=== PATIENT | male | born 1955 | race Caucasian/White ===

== ENCOUNTER → 2019-10-26 | Outpatient (CLI) | payer BC, OTHER ==
[~2019-10-26] MED LIST: ASPIR 8181 MG PO; ATORVASTATIN CA40 MG PO; CYMBALTA20 MG PO; CYMBALTA60 MG PO; ENBREL50 MG/1 ML SQ; FISH OIL 1,001000 M2 PO; FLEXERIL PO; FOLIC ACID1 MG PO; GLUCOSAMINE HC500 MG PO; LISINOPRIL5 MG PO; METHOTREXATE 22.5 MG PO; NIACIN 100MG T100 M1 PO; NORCO 5-325 TA1 EAC1 PO; PLAVIX 75 MG TA75 M1 PO; RESVERATROL250 MG PO; VITAMINC500 PO
== END ==
LOC: SJCVCIMAG 08:57
DX: I25.10 Atherosclerotic heart disease of native coronary artery without angina pectoris (principal); I25.2 Old myocardial infarction; Z79.899 Other long term (current) drug therapy

== ENCOUNTER 2019-10-30 06:40 | Observation (INO) | payer BC, OTHER ==
[2019-10-30] VITALS (10 sets, daily range): BP systolic 124–156; BP diastolic 60–88
[~2019-10-30] VITALS: Ht 177.8 cm; Wt 99.8 kg
[2019-10-30 07:38] LABS: HEMATOCRIT 41.2 % (42.0-52.0); MCH 33.4 pg (26.0-34.0); MCV 98.3 fL (80.0-100.0); RBC 4.19 mil/uL (4.50-6.00); RDW 12.2 % (10.5-14.5); WBC 6.3 thou/uL (4.0-11.0)
[2019-10-30 07:46] LABS: POTASSIUM 3.9 mmol/L (3.5-5.1)
[2019-10-30] MEDS ORDERED: PROZAC40 MG PO (07:55)
[2019-10-30] MEDS ORDERED: AZULFIDINE500 MG PO (07:56)
--- NOTE | 2019-10-30 08:52 | EKG ---
[facility] [place] [address] ELECTROCARDIOGRAM REPORT Name: CAMILLA KUMAR Room #: [facility]#: [id number] Admission: 10/30/19 Attend Phys: Felton Dow MD Discharge: Date of : 57 Report #: [id number] THIS REPORT FOR: cc: Rene Sellers Ghaison F. DO Lundgren, Craig H. 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
--- NOTE | 2019-10-30 11:51 | CATHLAB ---
[facility] [place] [address] INVASIVE PROCEDURE REPORT Name: CAMILLA KUMAR Room #: 209-P [facility] M.RJamie#: [id number] Admission: 10/30/19 Attend Phys: Felton Dow MD Discharge: Date of : 57 Report #: [id number] THIS REPORT FOR: cc: Rene Sellers Ghaison F. DO Park, Jin S. MD ~ APPROVED REPORT Study performed: 10/30/2019 08:28:24 Patient Details Patient Status: Out-Patient Room #: The patient is a 64 year-old male Event Personnel Felton Dow Funeral Pre Arrangement Counselor, Pari Demarco RN RN, Khloe Chapin Monitor, [employer] [place] RTR Scrub Procedures Performed Art Access - R femoral artery* 83162 Initial Mod Sed Same Phys/QHP Gr5y 098289 51937 Mod Sed Same Phys/QHP Ea 026156 Left Heart Cath w/or w/o Coronaries 6357653 [facility] w/wo Plasty Single LAD 749407 Hemostasis w/ Mynx Indication Dyspnea, Positive stress test Risk Factors Hypercholesterolemia, Coronary Artery DiseaseHypertension Previous Procedures/Diagnoses Previous PCI, Previous IL Procedure Narrative The patient was brought electively to the Cardiac Catheterization Laboratory and was prepped and draped in a sterile manner. The Right Groin^ was infiltrated with 1% Lidocaine subcutaneous anesthesia. A PINNACLE 4FR Sheath #[id number] sheath was inserted into the RFA^. Coronary angiography was performed using coronary diagnostic catheters. The right coronary system was accessed and visualized with a JR 4 catheter. The left coronary system was accessed and visualized with a JL 4 catheter. The left ventricle was accessed and visualized with a JR 4 catheter. Left ventricular/Aortic Valve gradient assessed via catheter pullback. Pre-demployment femoral angiogram was [facility] [place] [address] INVASIVE PROCEDURE REPORT Name: KUMARCAMILLA KEARNEY Room #: 209-P [facility] IN ..#: [id number] Admission: 10/30/19 Attend Phys: Felton Dow MD Discharge: Date of : 57 Report #: [id number] performed . Closure device was deployed with a 6 Fr Mynx. The patient tolerated the procedure well and there were no complications associated with the procedure. There was no hematoma. Intraoperative Conscious Sedation Sedation start time: 08:21 Case end Time: 09:15 Fentanyl 50 mcg Versed 1 mg Fluoro Time: 14.10 minutes Dose: DAP 00198.00 cGycm2 3418 mGy Contrast Type and Amount: Omnipaque 200 ml Coronary Angiography The patient's coronary anatomy is right dominant. Diagnostic Cath Left Main The left main artery is a large-caliber vessel, patent with no flow-limiting lesions. LAD The LAD is a moderate size caliber vessel, traversing the anterior wall and wrapping around the apex. There are 2 overlapping stents in the proximal/mid segment of the LAD. There is a severe restenotic lesion in the proximal stent, 80%. Diagonal 1 This is a small-caliber vessel, patent with no flow-limiting lesions. Diagonal 2 This is a small-caliber vessel, patent with no flow-limiting lesions. Circumflex Supplies 2 OM vessels. OM1 This is a moderate size caliber vessel, supplies multiple branches as it travels down the lateral wall. There is mild disease in the proximal segment. OM2 This is a small-caliber vessel, patent with no flow-limiting lesions. Right Coronary This is a dominant vessel, patent with no flow-limiting lesions. R PDA This is a small to moderate size caliber vessel, patent with no flow-limiting lesions. RPLV This is a small to moderate size caliber vessel, patent with no flow-limiting lesions. Left Ventriculography Left Ventriculography was not performed. Ejection Fraction was 50-55% based off patient's Nuclear Cardiac Stress Test. An LVEDP was checked and there is no gradient across the outflow tract. [facility] [address] [place] [address] INVASIVE PROCEDURE REPORT Name: CAMILLA KUMAR Room #: 209-P [facility] [place] M.R.#: [id number] Admission: 10/30/19 Attend Phys: Felton Dow MD Discharge: Date of : 57 Report #: [id number] Hemodynamics The aortic pressure is 129/69 mmHg with a mean of 85 mmHg. The left ventricular pressure is 132/17 mmHg with a mean of mmHg. The left ventricular end diastolic pressure is 25 mmHg. PCI Technique Lesion Percutaneous coronary intervention was performed on the proximal left anterior descending artery segment. The lesion stenosis prior to intervention was 80% with AMRITA 3 flow. A VISTA 6FR XB 3.5 #[id number] Guide Catheter was used to engage the ostium. A Luge Wire .014 x 182CM #[id number] Interventional Guidewire was used to cross the lesion. BALLOON DILATION A Balloon catheter Euphora NC RX 2.5 x 12 #[id number] was inserted and inflated up to 18atm for 15seconds. STENT DEPLOYMENT A drug-eluting stent RESOLUTE TYRESE RX 3.0 X 15 #[id number] was inserted and inflated up to 16.00atm for 30seconds. POST STENT DEPLOYMENT BALLOON DILATION A Balloon catheter Euphora NC RX 3.25 x 15 #[id number] was inserted and inflated up to 18.00atm for 19seconds. Final angiography reveals 5 % stenosis with AMRITA 3 flow. POST STENT DEPLOYMENT BALLOON DILATION A Balloon catheter Euphora NC RX 3.25 x 15 #[id number] was inserted and inflated up to 18.00atm for 22seconds. Conclusion 1. Successful insertion of a drug-eluting stent into the proximal LAD restenosis. There is a patent mid LAD stent. 2. Mild disease in a moderate size OM1 vessel. 3. Normal LV systolic function. 4. Recommend dual antiplatelet therapy and aggressive risk factor management. <ELECTRONICALLY SIGNED> By: Felton Dow MD 10/30/19 1150 49 49 Felton Dow MD /INF
--- NOTE | 2019-10-30 13:22 | NUR ---
PT ARRIVED TO CCU 209 AT 1030, ASSESSED, VSS, R GROIN CHECKED WITH DIRECTOR OF MUSIC THERAPY RN, CDI, NO HEMATOMA ON PALPATION, PT STATED HE'S NOT HAVING PAIN NOW. ON BEDREST, PT UNDERSTANDS POC, CALL LIGHT IN LAP, HEAD OF BED AT 30, PT AMBULATED ROOM WITH STEADY GAIT, GROIN REASSESSED, STILL CDI, NO HEMATOMA, IVF RUNNING AT 100CC/HR TILL 1500. REPORT GIVEN TO RM YOUSSEF.
--- NOTE | 2019-10-30 13:43 | EKG ---
[facility] [place] [address] ELECTROCARDIOGRAM REPORT Name: CAMILLA KUMAR Room #: 209-P [facility] M.R.#: [id number] Admission: 10/30/19 Attend Phys: Felton Dow MD Discharge: Date of : 57 Report #: [id number] THIS REPORT FOR: cc: Rene Sellers Ghaison F. DO Couchonnal, Luis F. 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 : 1955 Requested By: Felton Dow Order Number: [id number] MD: Reymundo Saucedo Measurements Intervals Brady Rate: 53 P: 46 PA: 150 QRS: -49 QRSD: 92 T: 57 QT: 461 QTc: 433 Interpretive Statements Sinus rhythm Left anterior fascicular block Low voltage, extremity and precordial leads Anteroseptal infarct, old Compared to ECG 10/30/2019 07:34:44 Left anterior fascicular block now present Low QRS voltage now present Myocardial infarct finding now present Poor R-wave progression no longer present Electronically Signed On 10-30-2019 13:41:53 CDT by Reymundo Saucedo [email or web address] <ELECTRONICALLY SIGNED> By: Reymundo Saucedo MD 10/30/19 1341 1119 1119 Reymundo Saucedo MD /EPI
--- NOTE | 2019-10-30 18:11 | NUR ---
ASSUMED CARE OF PT AT APPROX 1300 FROM RM DANIEL. ASSESSMENTS CHARTED. PT A&OX4. NO C/O PAIN, SOA, DIZZYNESS. PT HR IN 40-50S BUT REMAINS ASYMPTOMATIC. PLAN TO DISCHARGE IN THE MORNING IF PT IS STABLE. WILL CONTINUE TO MONITOR AND FOLLOW POC.
[2019-10-31 04:00] VITALS: BP 133/72
[2019-10-31 05:23] LABS: HEMATOCRIT 39.1 % (42.0-52.0); HEMOGLOBIN 13.2 gm/dL (14.0-18.0); MCH 33.5 pg (26.0-34.0); MCHC 33.7 g/dL (28.0-37.0); MCV 99.3 fL (80.0-100.0); RBC 3.94 mil/uL (4.50-6.00); RDW 12.1 % (10.5-14.5); WBC 8.3 thou/uL (4.0-11.0)
[2019-10-31 05:47] LABS: ALBUMIN 3.6 g/dL (3.4-5.0); CALCIUM 8.2 mg/dL (8.5-10.1); CREATININE 0.9 mg/dL (0.7-1.3); POTASSIUM 3.9 mmol/L (3.5-5.1); TOTAL BILIRUBIN 0.4 mg/dL (<0.1-1.0); TOTAL PROTEIN 6.2 g/dL (6.4-8.2)
--- NOTE | 2019-10-31 06:41 | NUR ---
ASSUMED CARE OF PATIENT AT 1900. VSS, AFEBRILE. GROIN SITE, C/D/I. NO PAIN. ANTICIPATING D/C TODAY.
[2019-10-31 08:10] VITALS: BP 127/79
[2019-10-31 11:15] VITALS: BP 127/79
--- NOTE | 2019-10-31 12:14 | EKG ---
[facility] [place] [address] ELECTROCARDIOGRAM REPORT Name: CAMILLA KUMAR Room #: 209-[facility] M.R.#: [id number] Admission: 10/30/19 Attend Phys: Felton Dow MD Discharge: 10/31/19 Date of : 57 Report #: [id number] THIS REPORT FOR: cc: Rene Sellers Ghaison F. DO Couchonnal, Luis F. 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 : 1955 Requested By: Felton Dow Order Number: [id number] : Reymundo Saucedo Measurements Intervals [place] Rate: 60 P: 66 NC: 152 QRS: -42 QRSD: 93 T: 67 QT: 450 QTc: 450 Interpretive Statements Sinus rhythm Left axis deviation Anterior infarct, old Compared to ECG 10/30/2019 11:19:07 Left-axis deviation now present Left anterior fascicular block no longer present Myocardial infarct finding still present Electronically Signed On 10-31-2019 12:13:23 CDT by Reymundo Saucedo [email or web address] <ELECTRONICALLY SIGNED> By: Reymundo Saucedo MD 10/31/19 1213 0 0 Reymundo Saucedo MD /EPI
--- NOTE | 2019-10-31 12:27 | NUR ---
ASSUMMED PT CARE AT [facility] 0700. PT A&O X4. ASSESSMENT CHARTED. FALL PRECAUTIONS IN PLACE. PT DENIES HAVING CHEST PAIN. PT DENIES HAVING SOB. PT DENIES HAVING ACUTE PAIN. PT DISCHARGING HOME C SELF CARE. R NATHANIEL C/D/I. NO HEMATOMA. VITAL SIGNS STABLE. PT RECIEVED DISCHARGE EDUCATION. PT STATED UNDERSTANDING C DISCHARGE EDUCATION AND DENIED HAVING FURTHER QUETIONS. PT AMBULATES STEADY. IV DC. TELE DC. PT RECEIVED HOSPITAL TRANSPORT OFF UNIT. PT'S PICKED UP PT. PT COMFORTABLE. PT DENIED HAVING FURTHER CONCERNS.
== END 2019-10-31 12:04 | disposition home or self-care (01) ==
LOC: CATH 06:40 → 2N 11:12 → CATH 13:41 → 2N 10-31 12:04
PROVIDERS: ADMIT Internal Medicine Cardiovascular Disease
DX: I25.110 Atherosclerotic heart disease of native coronary artery with unstable angina pectoris (principal); I10 Essential (primary) hypertension

== ENCOUNTER → 2020-11-14 | Outpatient (CLI) | payer BC, OTHER ==
[~2020-11-14] MED LIST changes: +AZULFIDINE500 MG PO; +PROZAC40 MG PO
== END ==
LOC: SJCVCIMAG 07:33
PROVIDERS: ATTEND Internal Medicine Cardiovascular Disease
DX: Z01.810 Encounter for preprocedural cardiovascular examination (principal); R94.31 Abnormal electrocardiogram [ECG] [EKG]; I25.10 Atherosclerotic heart disease of native coronary artery without angina pectoris; R06.00 Dyspnea, unspecified; E78.5 Hyperlipidemia, unspecified; E11.9 Type 2 diabetes mellitus without complications; I10 Essential (primary) hypertension; I25.2 Old myocardial infarction; Z87.891 Personal history of nicotine dependence; Z79.82 Long term (current) use of aspirin; Z79.899 Other long term (current) drug therapy; Z88.5 Allergy status to narcotic agent